=== PATIENT | female | born 1990 | race Caucasian/White ===

== ENCOUNTER → 2021-06-01 | Outpatient (CLI) | payer OTHER ==
--- NOTE | 2021-06-01 09:21 | RAD ---
EXAM: Right foot, 3 views. HISTORY: Pain. COMPARISON: None. FINDINGS: 3 views of the right foot are obtained. There is no fracture, dislocation or subluxation. T here is a corticated ossicle along the ventral proximal navicular bone. There is a tiny accessory kari icular bone. IMPRESSION: No acute osseous finding. Electronically signed by: Asia Chapman MD (06/01/2021 9:18 AM) [id number]
== END ==
LOC: RAD 08:48
PROVIDERS: ATTEND Physician Assistant
DX: M79.671 Pain in right foot (principal)
CPT/HCPCS: 73630